=== PATIENT | male | born 1960 | race Caucasian/White ===

== ENCOUNTER → 2016-12-30 | Outpatient (CLI) | payer OTHER ==
[~2016-12-30] MED LIST: CHOL1000 PO; CYAN100T PO; MULT-506 PO
[2016-12-30 13:14] LABS: ALT/SGPT 35 U/L (12-78); BLOOD UREA NITROGEN 17 mg/dl (7-18); BUN/CREATININE RATIO 18.8 (10-20); CALCIUM 8.4 mg/dl (8.5-10.1); CARBON DIOXIDE 28 mmol/L (21-32); CHLORIDE 106 mmol/L (98-107); CHOLESTEROL 173 mg/dl (0-200); CREATININE 0.91 mg/dl (0.60-1.40); GLUCOSE 93 mg/dl (70-99); POTASSIUM 4.1 mmol/L (3.5-5.1); SODIUM 140 mmol/L (136-145); TRIGLYCERIDES 78 mg/dl (0-150); VERY LOW DENSITY LIPOPROT CALC 16 mg/dl
[2016-12-30 13:23] LABS: ALB/GLOB RATIO 0.9 (0.9-2); ALKALINE PHOSPHATASE 70 U/L (45-117); AST/SGOT 22 U/L (15-37); C-REACTIVE PROTEIN 0.45 mg/dl (0-0.29); CHOLESTEROL/HDL RATIO 4.1; HDL CHOLESTEROL 42 mg/dl; LDL CHOLESTEROL CALCULATED 115 mg/dl; THYROID STIMULATING HORMONE 0.588 uIu/ml (0.300-4.500)
== END | disposition home or self-care (01) ==
LOC: C.LAB1850 11:50
PROVIDERS: ATTEND Internal Medicine
DX: R51 Headache (principal); I10 Essential (primary) hypertension; R25.1 Tremor, unspecified; E53.8 Deficiency of other specified B group vitamins; E55.9 Vitamin D deficiency, unspecified